=== PATIENT | female | born 1990 | race Caucasian/White ===

== ENCOUNTER → 2016-05-07 | Outpatient (REF) | payer BC | LOC: M SFHCLERA 11:41 | PROVIDERS: ATTEND Physician Assistant | DX: R50.9 Fever, unspecified (principal) ==

== ENCOUNTER → 2016-05-07 | Outpatient (CLI) | payer BC ==
--- NOTE | 2016-05-07 12:20 | REP ---
Chest x-ray: Two views. History: Cough and fever. . Comparison study: No comparison study . Findings: The lungs are well inflated and free of infiltrate. The pleural angles are sharp. The heart size is normal. Pulmonary vasculature is not increased. No significant bony abnormality is seen. Impression: Negative chest x-ray. Signed by Db Rojas MD 05/07/2016 12:12 P
== END ==
LOC: M LRY 11:54
PROVIDERS: ATTEND Physician Assistant
DX: R05 Cough (principal); R50.9 Fever, unspecified

== ENCOUNTER → 2016-07-10 | Outpatient (REF) | payer BC | LOC: M SFHCWAGY 16:16 | PROVIDERS: ATTEND Nurse Practitioner Women's Health | DX: Z12.4 Encounter for screening for malignant neoplasm of cervix (principal) | CPT/HCPCS: 87491; 87591; G0123 ==

== ENCOUNTER → 2017-05-08 | Outpatient (CLI) | payer BC | LOC: M RAD 08:20 | DX: I63.111 Cerebral infarction due to embolism of right vertebral artery (principal); I63.441 Cerebral infarction due to embolism of right cerebellar artery | CPT/HCPCS: 70450 ==

== ENCOUNTER → 2017-05-21 | Outpatient (CLI) | payer BC ==
[~2017-05-21] MED LIST: ISOVUE-370 76% 100ML VIAL (Q9967) As Ordered
== END ==
LOC: M RAD 09:40
DX: I63.111 Cerebral infarction due to embolism of right vertebral artery (principal)

== ENCOUNTER → 2019-06-07 | Outpatient (REF) | payer BC | LOC: M PLALAB 10:42 | PROVIDERS: ATTEND Obstetrics & Gynecology | DX: O36.80X0 Pregnancy with inconclusive fetal viability, not applicable or unspecified (principal); Z3A.00 Weeks of gestation of pregnancy not specified ==

== ENCOUNTER → 2019-06-25 | Outpatient (REF) | payer BC | LOC: M PLALAB 10:34 | PROVIDERS: ATTEND Obstetrics & Gynecology | DX: O36.80X1 Pregnancy with inconclusive fetal viability, fetus 1 (principal) ==

== ENCOUNTER → 2019-06-28 | Outpatient (CLI) | payer BC ==
--- NOTE | 2019-06-28 13:16 | REP ---
Clinical: Dating and viability. Technique: Transabdominal first trimester obstetrical ultrasound with color Doppler evaluation. Findings: Ultrasound examination demonstrates single live early intrauterine . Gestational sac with yolk sac and pole noted. CRL of 6 mm corresponds to 6 weeks 3 days gestational age with estimated date of delivery 02/18/2020. Heart rate equals 115 beats per minute. A small subchorionic hemorrhage is identified to the left of the gestational sac measuring 8 x 6 x 6 mm. Impression: 1. Single live early intrauterine at 6 weeks 3 days gestational age. Complete anatomical assessment should be performed at 19-20 weeks. 2. Small subchorionic hemorrhage. Electronically Signed by Isidoro Daley MD 06/28/2019 01:07 P
== END ==
LOC: M RAD 12:24
PROVIDERS: ATTEND Obstetrics & Gynecology
DX: O36.80X1 Pregnancy with inconclusive fetal viability, fetus 1 (principal); Z3A.01 Less than 8 weeks gestation of pregnancy

== ENCOUNTER → 2019-07-12 | Outpatient (REF) | payer BC ==
[2019-07-12 17:52] LABS: HEMATOCRIT 39.8 % (36.0-47.0); HEMOGLOBIN 12.9 g/dl (12.0-15.5); MEAN CORPUSCULAR HEMOGLOBIN 29.1 pg (27.0-33.0); MEAN CORPUSCULAR HGB CONC 32.4 g/dl (32.0-36.5); MEAN CORPUSCULAR VOLUME 89.6 fl (80.0-96.0); PLATELET COUNT, AUTOMATED 320 10^3/uL (150-450); RED BLOOD COUNT 4.44 10^6/uL (4.00-5.40); WHITE BLOOD COUNT 8.1 10^3/uL (4.0-10.0)
[2019-07-12 19:11] LABS: CHLAMYDIA DNA AMPLIFICATION NEGATIVE (NEGATIVE); GC DNA AMPLIFICATION NEGATIVE (NEGATIVE)
[2019-07-13 11:31] LABS: HIV 1&2 SCREEN CENTAUR NEGATIVE (NEGATIVE); RUBELLA IgG QUALITATIVE IMMUNE (IMMUNE)
[2019-07-14 09:55] LABS: HEPATITIS B SURFACE ANTIGEN NEGATIVE (NEGATIVE); HEPATITIS C VIRUS ABY INDEX 0.1 INDEX (<0.8)
== END ==
LOC: M PLALAB 14:01
PROVIDERS: ATTEND Obstetrics & Gynecology
DX: O34.211 Maternal care for low transverse scar from previous cesarean delivery (principal); Z3A.00 Weeks of gestation of pregnancy not specified

== ENCOUNTER → 2019-08-16 | Outpatient (REF) | payer BC | LOC: M PLALAB 14:22 | PROVIDERS: ATTEND Obstetrics & Gynecology | DX: O34.211 Maternal care for low transverse scar from previous cesarean delivery (principal) ==

== ENCOUNTER → 2019-10-25 | Outpatient (CLI) | payer BC ==
[~2019-10-25] MED LIST changes: +DOCU100C16 PO; +ECOT81TA5 PO; -ISOVUE-370 76% 100ML VIAL (Q9967) As Ordered; +LOVE0.8I3 SC; +PERCOCET PO; +UNIS25TA5 PO; +VITA65TA PO; +[UNRECOGNIZED DRUG - CODE] SC
--- NOTE | 2019-10-25 15:43 | REP ---
Clinical: Anatomical evaluation. Comparison: 06/28/2019 . Findings: Examination demonstrates a single live intrauterine in transverse (head to maternal right) presentation. motion is identified by technologist. Placenta is noted anterior and grade I without evidence for placenta previa or abruption. Amniotic fluid volume is normal. Cervix measures 3.2 cm in length and appears closed. No evidence for nuchal cord. Gestational age by LMP 23 weeks 3 days with JOE 02/18/2020 . Gestational age by current measurements 24 weeks 0 days with JOE 02/14/2020 . FHR equals 136 beats per minute. Estimated weight 701 grams ( 78th percentile). Anatomical assessment demonstrates normal structures including cranium, choroid plexus, cavum, cerebellum/posterior fossa, facial features, lungs, four-chamber heart/ventricular outflow tracts, stomach, cord insertion/three-vessel cord, and kidneys/bladder. Impression: Single live intrauterine in transverse lie demonstrating appropriate interval growth. No gross anatomical abnormalities are identified. Electronically Signed by Isidoro Daley MD 10/25/2019 03:35 P
== END ==
LOC: M WHC 14:27
PROVIDERS: ATTEND Specialist
DX: Z34.02 Encounter for supervision of normal first pregnancy, second trimester (principal); Z3A.24 24 weeks gestation of pregnancy

== ENCOUNTER → 2019-12-29 | Outpatient (CLI) | payer BC ==
--- NOTE | 2020-01-07 09:42 | REP ---
LIMITED OBSTETRICAL ULTRASOUND CLINICAL: History of lupus for growth evaluation. FINDINGS: Ultrasound examination demonstrates a single live intrauterine in breech presentation. motion was identified by the technologist. Placenta is noted anteriorly and grade 1 without placenta previa or abruption. Amniotic fluid volume is normal. Cervix measures 3.8 cm in length and appears closed. Gestational age by current measurements 34 weeks 4 days with estimated date of delivery 02/05/2020. heart rate 135 beats per minute. Amniotic fluid index (CED) 14.3 cm. BIOMETRIC MEASUREMENTS: BPD 8.3 cm 33 weeks 2 days HC 32.1 cm 36 weeks 2 days AC 32.9 cm 36 weeks 6 days FL 6.5 cm 33 weeks 2 days HL 5.8 cm 33 weeks 4 days HC/AC ratio 0.98 Estimated weight 2685 grams (greater than 90th percentile based on age by last menstrual period (LMP) at 32 weeks 5 days). IMPRESSION: * Single live intrauterine in breech presentation. * The estimated weight by current measurements is greater than 90th percentile based on the patients gestational age by last menstrual period (LMP). Correlation is recommended. Weight by current examination would be at 80th percentile based on age by current biometrical measurements. MTDD
== END ==
LOC: M WHC 10:06
PROVIDERS: ATTEND Obstetrics & Gynecology
DX: O32.1XX0 Maternal care for breech presentation, not applicable or unspecified (principal); Z3A.32 32 weeks gestation of pregnancy

== ENCOUNTER → 2020-01-14 | Outpatient (CLI) | payer BC ==
--- NOTE | 2020-01-19 15:20 | REP ---
OBSTETRIC SONOGRAPHY HISTORY: Biophysical profile. Low transverse uterine scar from previous C- section. FINDINGS: Limited obstetric sonography demonstrates a viable cephalic intrauterine gestation. Placenta is anterior grade 1 without evidence of previa. Amniotic fluid is subjectively normal. Amniotic fluid index (CED) is normal at 12.4 cm. Biophysical profile score is 8 out of a possible 8. S/D ratio in the umbilical cord artery by Doppler is normal at 2.72. MTDD
== END ==
LOC: M WHC 15:27
PROVIDERS: ATTEND Obstetrics & Gynecology
DX: O34.211 Maternal care for low transverse scar from previous cesarean delivery (principal)

== ENCOUNTER → 2020-01-26 | Outpatient (REF) | payer BC ==
[~2020-01-26] MED LIST changes: -DOCU100C16 PO; -LOVE0.8I3 SC; -PERCOCET PO
== END ==
LOC: M SFHCWAGY 09:47
PROVIDERS: ATTEND Obstetrics & Gynecology
DX: Z3A.36 36 weeks gestation of pregnancy (principal)

== ENCOUNTER → 2020-02-06 | Outpatient (CLI) | payer BC ==
[~2020-02-06] MED LIST changes: +DOCU100C16 PO; +LOVE0.8I3 SC; +PERCOCET PO
== END ==
LOC: M LABSMTC 08:00
PROVIDERS: ATTEND Anesthesiology
DX: Z01.812 Encounter for preprocedural laboratory examination (principal); Z20.828 Contact with and (suspected) exposure to other viral communicable diseases
CPT/HCPCS: C9803; U0003

== ENCOUNTER 2020-02-11 04:57 | Inpatient (IN) | payer BC ==
[~2020-02-11] VITALS: Ht 157.5 cm; Wt 107.8 kg
[2020-02-11] VITALS (8 sets, daily range): BP systolic 121–138; BP diastolic 58–93
[~2020-02-11 04:57] MED LIST changes: -DOCU100C16 PO; -LOVE0.8I3 SC; -PERCOCET PO
[2020-02-11] MEDS ORDERED: BICITRA 30ML SOLN UDC PO ONE (05:45)
[2020-02-11] MEDS ORDERED: ceFAZolin SOD 2 GM in IV 1 EA IV ONE (05:45)
[2020-02-11] MEDS ORDERED: LR 1,000 ML IV SCH ×2 (05:45→09:30)
[2020-02-11] MEDS ORDERED: LR 1,000 ML IV ONE (05:45)
[2020-02-11 05:55] LABS: HEMATOCRIT 33.4 % (36.0-47.0); HEMOGLOBIN 10.5 g/dl (12.0-15.5); MEAN CORPUSCULAR HGB CONC 31.4 g/dl (32.0-36.5); MEAN CORPUSCULAR VOLUME 82.7 fl (80.0-96.0); PLATELET COUNT, AUTOMATED 263 10^3/uL (150-450); RED BLOOD COUNT 4.04 10^6/uL (4.00-5.40); WHITE BLOOD COUNT 12.7 10^3/uL (4.0-10.0)
[2020-02-11] MEDS ORDERED: NALOXONE INJ 0.4MG/1ML VIAL (J2310 PER 1MG) IV PRN ×2 (07:49)
[2020-02-11] MEDS ORDERED: NALBUPHINE HCL 10 MG/ML AMP (J2300) IV PRN (07:49)
[2020-02-11] MEDS ORDERED: ONDANSETRON 4MG/2ML VIAL IV PRN ×2 (07:49→09:30)
[2020-02-11] MEDS ORDERED: PHENYLephrine HCL 500 MCG/5 ML (100MCG/ML) SYRINGE (J2370) As Ordered ONE (08:09)
[2020-02-11] MEDS ORDERED: OXYTOCIN INJ 10 UNITS/ML VIAL (J2590) As Ordered ONE (08:09)
[2020-02-11] MEDS ORDERED: ePHEDrine SULFATE 25 MG/5 ML(5MG/ML) SYRINGE As Ordered ONE (08:09)
[2020-02-11] MEDS ORDERED: ONDANSETRON 4MG/2ML VIAL As Ordered ONE (08:09)
[2020-02-11] MEDS ORDERED: MORPHINE PRES-FREE INJ 10 MG/10 ML VIAL (J2274) As Ordered ONE (08:09)
[2020-02-11] MEDS ORDERED: OXYTOCIN DRIP 30 UNITS in IV 1 EA IV SCH (08:50)
[2020-02-11] MEDS: LR 1,000 ML IV SCH ×2 (08:50→23:11)
[2020-02-11] MEDS: PRENATAL VITAMINS CHEWABLE TABLET PO SCH (09:00)
[2020-02-11] MEDS ORDERED: PROMETHAZINE 25 MG TAB PO PRN (09:00)
[2020-02-11] MEDS: DOCUSATE SODIUM 100 MG CAP PO SCH ×2 (09:00→20:02)
[2020-02-11] MEDS ORDERED: RHOGAM 300 MCG (1500 IU) INJ (J2790) IM SCH (09:00)
[2020-02-11] MEDS ORDERED: MEASLES,MUMPS,RUBELLA VACCINE INJ (MMR-II) (90707) SC SCH (09:00)
--- NOTE | 2020-02-11 09:00 | ROOPDOC ---
[facility] Report Of Operation Report of Operation DATE OF PROCEDURE: 02/11/2020 PREPROCEDURE DIAGNOSES: 39+ weeks gestation, antiphospholipid antibody syndrome, history of low transverse section and satisfied parity POSTPROCEDURE DIAGNOSES: Same PROCEDURE: Repeat low transverse section with [place] bilateral tubal ligation. SURGEON: Edson Moise DO FACOG MUSICAL STRING MAKER: Jagdeep Martin MD FACOG (Essential role in retraction, extraction, and closure of all tissue layers) ANESTHESIA: Spinal with Duramorph ESTIMATED BLOOD LOSS: 500 mL. IV FLUIDS: 1600 mL LR URINE OUTPUT: 100 mL COMPLICATIONS: None. FINDINGS: Normal uterus and bilateral fallopian tubes/ovaries. PREOPERATIVE ANTIBIOTICS: Ancef 2g IV x 1. DATA: Apgars 8 and 9. Birthweight 7lbs 14oz 3580g . SPECIMENS: right and left fallopian tubal segments. DESCRIPTION OF PROCEDURE: The patient was counseled on the risks, benefits, indications and alternatives of the procedure. Informed consent was obtained. She was taken to the operating room with IV running and placed on the operating table in the dorsal supine position with a leftward tilt. Regional anesthesia/epidural was bolused and found to be adequate. Sequential compression devices were placed on the lower extremities. A Cordon catheter was placed under sterile conditions. She was prepared and draped in normal sterile fashion. A time out was performed per protocol. Epidural anesthesia was again found to be adequate. A Pfannenstiel skin incision was made with the 10 blade. The 10 blade was used to dissect down to the level of the rectus sheath fascia. The rectus sheath pressure was incised midline and this was extended bilaterally with Connell scissors , and manual stretch. The rectus muscle bellies were dissected off the rectus sheath fascia superiorly and inferiorly using both sharp and blunt dissection. The midline was identified. The peritoneum was identified and entered digitally. The peritoneal opening was extended with manual stretch. The Mobius retractor was placed. The vesicouterine peritoneum was dissected with Metzenbaum scissors to create the bladder flap. A low transverse uterine incision was made with the 10 blade. This was extended with manual stretch. The amniotic sac was punctured, and clear fluid was noted. The head delivered through the hysterotomy without difficulty. The remainder of the body delivered with ease. The cord was doubly clamped and cut, and the baby was handed off to awaiting care. data shown above. The placenta was removed manually. The intrauterine cavity was cleared of all clot and debris. The hysterotomy was closed with 0 Vicryl in running locked fashion. This was reinforced with a second imbricating layer using 0 Vicryl in running fashion. Excellent hemostasis of the hysterotomy was noted. The right and left fallopian tubes were followed out to the fimbriated end. A ligation was performed on each fallopian tube using the following technique (Vasquez): The ampullary portion of each was grasped with a Mobile and elevated. A peritoneal window was created with Bovie along the mesosalpinx. Plain gut suture was used to tie two locations of the fallopian tube at the ends of the created window. The approximate 2-3cm intervening segment of fallopian tube was excised with Metzenbaum scissors. Bovie cautery was used to obliterate the lumen of the fallopian tube on each cut end, and to ensure hemostasis. Excellent hemostasis was noted. The pelvis was irrigated and the fluid suctioned. The Mobius retractor was removed. The peritoneum was closed with 3-0 Vicryl running fashion. The rectus muscle bellies were reapproximated with interrupted stitches using 3-0 Vicryl. The rectus muscles bellies were hemostatic. The rectus sheath fascia was closed with 0 Vicryl running fashion. The subcutaneous layer was irrigated and the fluid suctioned. Small bleeding vessels were cauterized with Bovie. Excellent hemostasis was noted. The subcutaneous layer was reapproximated with 3-0 Vicryl running fashion. Skin was closed with 3-0 Monocryl in subcuticular fashion. An Optifoam bandage was placed over the closed incision. Sponge, needle and instrument counts were correct per protocol throughout the procedure. The patient tolerated the entire procedure very well. She was transferred to the PACU in stable condition. DO ARELI Johnson JONATHAN R. DO Feb 11, 2020 09:00
[2020-02-11] MEDS ORDERED: DOCU100C16 PO (09:02)
[2020-02-11] MEDS ORDERED: LOVE0.8I3 SC (09:02)
[2020-02-11] MEDS ORDERED: PERCOCET PO (09:02)
[2020-02-11] MEDS ORDERED: METOCLOPRAMIDE INJ 10MG/2ML VIAL (J2765 PER 1) As Ordered ONE (09:21)
[2020-02-11] MEDS: METOCLOPRAMIDE INJ 10MG/2ML VIAL (J2765 PER 1) IV PRN ×3 (09:25→23:10)
[2020-02-11] MEDS ORDERED: PERCOCET 5MG/325MG TAB PO PRN (09:30)
[2020-02-11] MEDS ORDERED: fentaNYL 100 MCG/2 ML INJECTION (J3010) IV PRN (09:30)
[2020-02-11] MEDS ORDERED: METOCLOPRAMIDE INJ 10MG/2ML VIAL (J2765 PER 1) IV PRN (09:30)
[2020-02-11] MEDS ORDERED: KETOROLAC 30 MG/ML 1ML VIAL IV PRN (09:45)
[2020-02-11] MEDS: ONDANSETRON 4MG/2ML VIAL IV PRN ×2 (11:15→20:03)
[2020-02-11] MEDS: KETOROLAC 30 MG/ML 1ML VIAL IV SCH ×3 (11:31→23:10)
[2020-02-11] MEDS ORDERED: MECLIZINE 25 MG TABLET PO PRN (15:00)
[2020-02-11] MEDS: MECLIZINE 25 MG TABLET PO PRN ×2 (15:14→18:12)
[2020-02-11] MEDS: ENOXAPARIN 150MG/ML SYRINGE (J1650 PER 10MG) SC SCH (18:56)
[2020-02-12] MEDS: diphenhydrAMINE 50MG/ML VIAL (J1200) IV PRN ×2 (01:02→05:11)
[2020-02-12] MEDS: KETOROLAC 30 MG/ML 1ML VIAL IV SCH (05:11)
[2020-02-12 06:00] VITALS: BP 107/65
--- NOTE | 2020-02-12 07:43 | IPNPDOC ---
Text Note Date of Service The patient was seen on 02/12/20. NOTE Subjective: Lakia is a 29 y/o status post Repeat C/Section with Bilateral tubal ligation, post-operative day 1. Ambulating around room well. Denies passing flatus. Voiding without difficulty. Infant formula feeding well. Pain well controlled with Tylenol, Toradol, and Percocet. Objective: VSS, normotensive, afebrile Abdomen: Soft, non tender, no distention, Dressing CDI, Fundus firm at U-1, small rubra lochia Respiratory: Regular rate, no accessory muscle use. Extremities: Mild bilateral edema to knees, no calf tenderness Assessment: Post-operative Day 1 Plan: 1. Encourage ambulation. 2. Tylenol and Percocet for pain as needed. 3. Anticipate Discharge home tomorrow. 4. Stool softeners as ordered. VS,Fishbone, I+O VS, Fishbone, I+O Vital Signs Date Time Temp Pulse Resp B/P (MAP) Pulse Ox O2 Delivery O2 Flow Rate FiO2 02/11/20 22:00 97.1 72 18 126/73 (90) 97 Room Air I&O- Last 24 Hours up to 6 AM 02/12/20 06:00 Intake Total 2571 ml Output Total 2155 ml Balance 416 ml Brittni Love CNM Feb 12, 2020 07:29
[2020-02-12 07:55] LABS: HEMATOCRIT 29.2 % (36.0-47.0); HEMOGLOBIN 8.9 g/dl (12.0-15.5); MEAN CORPUSCULAR HEMOGLOBIN 26.3 pg (27.0-33.0); MEAN CORPUSCULAR HGB CONC 30.5 g/dl (32.0-36.5); MEAN CORPUSCULAR VOLUME 86.4 fl (80.0-96.0); PLATELET COUNT, AUTOMATED 232 10^3/uL (150-450); RED BLOOD COUNT 3.38 10^6/uL (4.00-5.40); WHITE BLOOD COUNT 12.9 10^3/uL (4.0-10.0)
[2020-02-12] MEDS: LR 1,000 ML IV SCH (08:50)
[2020-02-12] MEDS: DOCUSATE SODIUM 100 MG CAP PO SCH ×2 (09:11→20:00)
[2020-02-12] MEDS: PRENATAL VITAMINS CHEWABLE TABLET PO SCH (09:11)
[2020-02-12] MEDS: PERCOCET 5MG/325MG TAB PO PRN ×3 (09:25→20:01)
[2020-02-12 10:00] VITALS: BP 124/67
[2020-02-12 14:00] VITALS: BP 131/82
[2020-02-12 18:00] VITALS: BP 133/87
[2020-02-12] MEDS: ENOXAPARIN 150MG/ML SYRINGE (J1650 PER 10MG) SC SCH (19:01)
[2020-02-12 22:00] VITALS: BP 115/76
[2020-02-13 02:00] VITALS: BP 115/73
[2020-02-13] MEDS: PERCOCET 5MG/325MG TAB PO PRN ×2 (02:45→09:43)
[2020-02-13 06:00] VITALS: BP 106/61
[2020-02-13] MEDS ORDERED: PERCOCET PO (07:52)
--- NOTE | 2020-02-13 08:01 | DS.PDOC ---
Discharge Summary General Date of Admission Feb 11, 2020 at 04:57 Date of Discharge 02/13/2020 Primary Care Physician: JULIA VALLADARES DO Attending Physician: JULIA VALLADARES DO Discharge Summary PROCEDURES PERFORMED DURING STAY: Repeat section with bilateral [place] tubal ligation. Spinal anesthesia ADMITTING DIAGNOSES: 1. 39+ weeks gestation, antiphospholipid antibody syndrome, history of low transverse section and satisfied parity. DISCHARGE DIAGNOSES: 1. Repeat section. COMPLICATIONS/CHIEF COMPLAINT: Previous Section Satisified Parity. HISTORY OF PRESENT ILLNESS: Patient presented at 39 weeks for scheduled section. section was uncomplicated productive of a liveborn infant Apgars 8 and 9 weight was 7 lbs. 14 oz. Patient also underwent a bilateral tubal ligation which was at the time of section. She did well postoperatively by postoperative day #2 had met all discharge criteria is as discharged home in stable condition.. HOSPITAL COURSE: Uncomplicated. DISCHARGE MEDICATIONS: Please see below. ALLERGIES: Please see below. PHYSICAL EXAMINATION ON DISCHARGE: VITAL SIGNS: Please see below. GENERAL: Well-appearing ABDOMINAL EXAMINATION: Soft, appropriately tender, incision dressed EXTREMITIES: neg calf tenderness NEUROLOGICAL EXAMINATION: Grossly intact PSYCHIATRIC EXAMINATION: Normal ACTIVITY: As tolerated. DIET: Regular DISCHARGE PLAN: Home DISPOSITION: . DISCHARGE INSTRUCTIONS: 1. Follow-up in 2 weeks 2. Remain on pelvic rest for 6 weeks 3. Reports severe pain heavy vaginal bleeding fever or incisional issues. DISCHARGE CONDITION: Stable. Vital Signs/I&Os Vital Signs Date Time Temp Pulse Resp B/P (MAP) Pulse Ox O2 Delivery O2 Flow Rate FiO2 02/13/20 06:00 98.1 85 20 106/61 (76) 98 Room Air Discharge Medications Scheduled Aspirin (Ecotrin) 81 Mg Tablet.dr, 81 MG PO DAILY for pain, (Reported) Docusate Sodium (Docusate Sodium) 100 Mg Capsule, 100 MG PO BID Doxylamine Succinate (Unisom) 25 Mg Tablet, 25 MG PO DAILY, (Reported) Enoxaparin Sodium (Lovenox) 150 Mg/1 Ml Syringe, 150 MG SC DAILY Vit 10/Iron Fum/Folic (Vitafol-Ob Caplet) 1 Each Tablet, 1 TAB PO DAILY, (Reported) Scheduled PRN Oxycodone/Acetaminophen (Oxycodone-Acetaminophen 5-325) 1 Each Tablet, 1-2 TAB PO Q6HP PRN for MILD/MODERATE PAIN (PS 1-7) Allergies Coded Allergies: No Known Allergies (Unverified , 02/04/20) DONNIE DANIEL MD. Feb 13, 2020 08:01
[2020-02-13] MEDS: DOCUSATE SODIUM 100 MG CAP PO SCH (08:35)
[2020-02-13] MEDS: PRENATAL VITAMINS CHEWABLE TABLET PO SCH (08:35)
[2020-02-13] MEDS ORDERED: BOOSTRIX/ADACEL VACCINE (DIPHTH/PERTUSS/ACELL/TETANUS) 0.5ML SYR IM ONE (09:00)
[2020-02-13] MEDS ORDERED: INFLUENZA QUADRIVALENT PF VACCINE 0.5ML SYRINGE IM ONE (09:00)
== END 2020-02-13 13:15 | disposition home or self-care (01) | DRG 540 ==
LOC: M LDI 04:57 → M OBS 10:16
PROVIDERS: ADMIT Obstetrics & Gynecology; ATTEND Obstetrics & Gynecology
PROC: 0UB70ZZ Excision of Bilateral Fallopian Tubes, Open Approach (ICD-10-PCS; 2020-02-11)
PROC: 10D00Z1 Extraction of Products of Conception, Low, Open Approach (ICD-10-PCS; principal; 2020-02-11 07:30)
DX: O34.211 Maternal care for low transverse scar from previous cesarean delivery (principal); D68.61 Antiphospholipid syndrome; O99.12 Other diseases of the blood and blood-forming organs and certain disorders involving the immune mechanism complicating childbirth; Z37.0 Single live birth; Z3A.39 39 weeks gestation of pregnancy; Z30.2 Encounter for sterilization

== ENCOUNTER → 2021-02-13 | Outpatient (REF) | payer BC ==
[~2021-02-13] MED LIST changes: +DOCU100C16 PO; +LOVE0.8I3 SC; +PERCOCET PO
== END ==
LOC: M SFHCWAGY 17:20
PROVIDERS: ATTEND Obstetrics & Gynecology
DX: Z12.4 Encounter for screening for malignant neoplasm of cervix (principal)
CPT/HCPCS: 87624; G0123

== ENCOUNTER → 2021-03-15 | Outpatient (CLI) | payer BC ==
--- NOTE | 2021-03-16 05:45 | REP ---
INDICATION: ABNORMAL UTERINE BLEEDING COMPARISON: None. TECHNIQUE: Transabdominal pelvic ultrasound followed by transvaginal examination for better evaluation of the endometrium and adnexa with color Doppler evaluation of the ovaries. FINDINGS: Bladder is under distended and currently measures 5.3 x 3.9 x 3.2 cm. Normal anteverted uterus measures 12.4 x 4.1 x 5.2 cm. The endometrial complex measures 8.0 mm thickness. IUD identified in satisfactory position. No discrete uterine or endometrial abnormalities are appreciated. Bilateral ovaries are normal in appearance and vascularity without evidence for torsion. Right ovary measures 2.3 x 1.3 x 2.5 cm; R I = 0.53. Left ovary measures 2.7 x 2.1 x 2.8 cm; R I = venous flow detected. No pelvic fluid or adnexal mass lesion. IMPRESSION: Essentially normal pelvic ultrasound. <Electronically signed by Isidoro Daley > 03/16/21 [id number]
== END ==
LOC: M WHC 13:01
PROVIDERS: ATTEND Obstetrics & Gynecology
DX: N93.9 Abnormal uterine and vaginal bleeding, unspecified (principal)

== ENCOUNTER → 2021-09-17 | Outpatient (CLI) | payer BC ==
[~2021-09-17] MED LIST changes: +AIMO70IN2 SC; +BUTA1CAP PO; +HYDR50TA70 PO; +MEDR10TA PO; +SEMA2.4P SC; +SERT25TA21 PO; +TOPA1TAB PO; +XARE20TA PO; +ZOLO100T PO
== END ==
LOC: M LABSMTC 11:06
PROVIDERS: ATTEND Anesthesiology
DX: Z11.52 Encounter for screening for COVID-19 (principal)

== ENCOUNTER → 2021-09-17 | Outpatient (REF) | payer BC | LOC: M SFHCWAGY 12:45 | PROVIDERS: ATTEND Obstetrics & Gynecology | DX: N93.9 Abnormal uterine and vaginal bleeding, unspecified (principal) ==

== ENCOUNTER 2021-09-21 10:40 | Day surgery (SDC) | payer BC ==
[2021-09-21] VITALS (7 sets, daily range): BP systolic 88–115; BP diastolic 46–61
[~2021-09-21] VITALS: Ht 157.5 cm; Wt 83.0 kg
[~2021-09-21 10:40] MED LIST changes: +LIDOCAINE 2% 100MG/5ML SDV (FOR ANES.) As Ordered ONE; +LR 1,000 ML IV SCH; +MIDAZOLAM INJ 2MG/2ML VIAL (J2250 PER 1MG) As Ordered ONE; +ONDANSETRON 4MG/2ML VIAL As Ordered ONE; +ROCURONIUM BROMIDE 50 MG/5 ML VIAL As Ordered ONE; +ceFAZolin SOD 2 GM in IV 1 EA IV ONE; +dexameTHASONE 4 MG/ML 1ML VIAL (J1100 PER 1MG) As Ordered ONE; +fentaNYL 100 MCG/2 ML INJECTION As Ordered ONE; +propofoL 200 MG/20 ML VIAL As Ordered ONE
[2021-09-21] MEDS ORDERED: METHYLENE BLUE 0.5% (5MG/ML) 10 ML AMP (PROVAYBLUE) As Ordered ONE (10:58)
[2021-09-21] MEDS ORDERED: BUPIVACAINE HCL 0.25% 30ML VIAL As Ordered ONE (10:58)
[2021-09-21] MEDS ORDERED: SCOPOLAMINE 1MG TRANSDERMAL PATCH TOP ONE (11:15)
[2021-09-21] MEDS ORDERED: FLON1SPR (11:16)
[2021-09-21] MEDS ORDERED: RA M500C PO (11:16)
[2021-09-21] MEDS ORDERED: CETI10CH PO (11:16)
[2021-09-21 11:19] LABS: HEMATOCRIT 36.5 % (36.0-47.0); HEMOGLOBIN 11.7 g/dl (12.0-15.5); MEAN CORPUSCULAR HEMOGLOBIN 27.5 pg (27.0-33.0); MEAN CORPUSCULAR HGB CONC 32.1 g/dl (32.0-36.5); MEAN CORPUSCULAR VOLUME 85.7 fl (80.0-96.0); PLATELET COUNT, AUTOMATED 348 10^3/uL (150-450); RED BLOOD COUNT 4.26 10^6/uL (4.00-5.40)
[2021-09-21] MEDS ORDERED: LR 1,000 ML IV SCH ×2 (11:50→14:25)
[2021-09-21 11:57] LABS: HCG, SERUM QUALITATIVE NEGATIVE (NEGATIVE)
[2021-09-21] MEDS ORDERED: ROCURONIUM BROMIDE 50 MG/5 ML VIAL As Ordered ONE (12:58)
[2021-09-21] MEDS ORDERED: propofoL 200 MG/20 ML VIAL As Ordered ONE (13:39)
[2021-09-21] MEDS ORDERED: KETOROLAC 60MG 2ML VIAL As Ordered ONE (13:39)
[2021-09-21] MEDS ORDERED: SUGAMMADEX SODIUM 500 MG/5 ML VIAL (BRIDION) As Ordered ONE (13:39)
[2021-09-21] MEDS ORDERED: ACETAMINOPHEN 1000MG 100ML IV BTL (OFIRMEV) (J0131 PER 10MG) As Ordered ONE (13:40)
[2021-09-21] MEDS ORDERED: METOCLOPRAMIDE INJ 10MG/2ML VIAL (J2765 PER 1) As Ordered ONE (14:02)
[2021-09-21] MEDS ORDERED: ONDANSETRON 4MG/2ML VIAL IV PRN ×2 (14:25→15:20)
[2021-09-21] MEDS ORDERED: HYDROMORPHONE HCL 0.5 MG/ 0.5 ML SYRINGE (J1170 PER 1) IV PRN (14:25)
[2021-09-21] MEDS ORDERED: fentaNYL 100 MCG/2 ML INJECTION IV PRN (14:25)
[2021-09-21] MEDS ORDERED: oxyCODONE 5MG TAB PO PRN (14:25)
[2021-09-21] MEDS ORDERED: PERCOCET 5MG/325MG TAB PO PRN ×2 (15:20)
[2021-09-21] MEDS ORDERED: MORPHINE 2 MG/ML 1ML VIAL IV PRN (15:20)
[2021-09-21] MEDS ORDERED: COLA100C5 PO (15:37)
[2021-09-21] MEDS ORDERED: IBUP80TA PO (15:37)
[2021-09-21] MEDS ORDERED: PERCOCET PO (15:37)
[2021-09-21] MEDS: LR 1,000 ML IV SCH ×2 (15:46→20:09)
[2021-09-21] MEDS ORDERED: LR 1,000 ML IV ONE (16:30)
[2021-09-21] MEDS: DOCUSATE SODIUM 100MG CAPSULE PO SCH (20:08)
[2021-09-21] MEDS: KETOROLAC 30 MG/ML 1ML VIAL IV SCH (20:09)
[2021-09-22] VITALS: BP 94/58
[2021-09-22] MEDS: KETOROLAC 30 MG/ML 1ML VIAL IV SCH ×2 (03:13→08:28)
[2021-09-22 04:00] VITALS: BP 95/51
[2021-09-22 08:08] VITALS: BP 101/59
[2021-09-22] MEDS: DOCUSATE SODIUM 100MG CAPSULE PO SCH (08:27)
[2021-09-22] MEDS ORDERED: IBUPROFEN 800 MG TAB PO SCH (23:00)
== END 2021-09-22 10:20 | disposition home or self-care (01) ==
LOC: M SDC 10:40 → M PED 15:40 → M SDC 09-22 10:20
PROVIDERS: ATTEND Obstetrics & Gynecology
DX: N93.9 Abnormal uterine and vaginal bleeding, unspecified (principal); R10.2 Pelvic and perineal pain; N83.201 Unspecified ovarian cyst, right side; G43.909 Migraine, unspecified, not intractable, without status migrainosus; E11.9 Type 2 diabetes mellitus without complications; Z87.891 Personal history of nicotine dependence; D68.61 Antiphospholipid syndrome; Z86.73 Personal history of transient ischemic attack (TIA), and cerebral infarction without residual deficits; F41.9 Anxiety disorder, unspecified; Z79.02 Long term (current) use of antithrombotics/antiplatelets; Z79.899 Other long term (current) drug therapy
CPT/HCPCS: 36415; 58571; 58662; 84703; 85027; 86850; 86900; 86901; 88307; 96361; 96374; 96376; J0131; J0690; J1100; J1885; J2250; J2405; J2765; J3010; Q9968; S2900

== ENCOUNTER → 2023-10-07 | Outpatient (CLI) | payer BC ==
[~2023-10-07] MED LIST changes: +CETI10CH PO; +COLA100C5 PO; +FLON1SPR; +IBUP80TA PO; -LIDOCAINE 2% 100MG/5ML SDV (FOR ANES.) As Ordered ONE; -LR 1,000 ML IV SCH; -MEDR10TA PO; +MEDR10TA9 PO; -MIDAZOLAM INJ 2MG/2ML VIAL (J2250 PER 1MG) As Ordered ONE; -ONDANSETRON 4MG/2ML VIAL As Ordered ONE; +RA M500C PO; -ROCURONIUM BROMIDE 50 MG/5 ML VIAL As Ordered ONE; -ceFAZolin SOD 2 GM in IV 1 EA IV ONE; -dexameTHASONE 4 MG/ML 1ML VIAL (J1100 PER 1MG) As Ordered ONE; -fentaNYL 100 MCG/2 ML INJECTION As Ordered ONE; -propofoL 200 MG/20 ML VIAL As Ordered ONE
[2023-10-07 17:36] LABS: BASO % 0.3 % (0.0-1.0); EOS % 0.1 % (0.0-3.0); HEMATOCRIT 43.7 % (36.0-47.0); LYMPH % 23.6 % (24.0-44.0); MEAN CORPUSCULAR HEMOGLOBIN 30.4 pg (27.0-33.0); MEAN CORPUSCULAR HGB CONC 34.3 g/dl (32.0-36.5); MEAN CORPUSCULAR VOLUME 88.6 fl (80.0-96.0); MONO # 0.4 10^3/uL (0.0-0.8); MONO % 4.5 % (2.0-8.0); NEUTROPHILS # 6.1 10^3/uL (1.5-8.5); NEUTROPHILS % 71.2 % (36.0-66.0); PLATELET COUNT, AUTOMATED 343 10^3/uL (150-450); RED BLOOD COUNT 4.93 10^6/uL (4.00-5.40); WHITE BLOOD COUNT 8.6 10^3/uL (4.0-10.0)
[2023-10-07 18:05] LABS: BLOOD UREA NITROGEN 11 MG/DL (9-23); CALCIUM LEVEL 8.9 MG/DL (8.5-10.1); CARBON DIOXIDE LEVEL 22 MMOL/L (20-31); CHLORIDE LEVEL 111 MMOL/L (98-107); CREATININE FOR GFR 0.78 MG/DL (0.55-1.30); GLOMERULAR FILTRATION RATE > 60.0 (>60); GLUCOSE, FASTING 76 MG/DL (60-100); POTASSIUM SERUM 3.9 MMOL/L (3.5-5.1); SODIUM LEVEL 141 MMOL/L (136-145)
== END ==
LOC: M PLALAB 15:15
PROVIDERS: ATTEND Internal Medicine Hematology
DX: D68.61 Antiphospholipid syndrome (principal)

== ENCOUNTER → 2024-01-26 | Outpatient (CLI) | payer BC | LOC: M PLAIMG 10:51 | PROVIDERS: ATTEND Psychiatry & Neurology Neurology | DX: R41.841 Cognitive communication deficit (principal) ==